=== PATIENT | female | born 1975 | race Caucasian/White ===

== ENCOUNTER 2021-12-12 07:28 | Emergency (ER) | payer OTHER ==
[2021-12-12 07:43] VITALS: BP 144/87; PULSE 80; TEMP 97; BMI 29.8
[2021-12-12] MEDS ORDERED: ACETAMINOPHEN 500 MG TABLET (FP) PO ONE (08:48)
[2021-12-12] MEDS ORDERED: ACETAMINOPHEN 500 MG TABLET (FP) ONE (08:59)
== END 2021-12-12 09:05 | disposition home or self-care (01) ==
LOC: JER 07:28
DX: M54.50 Low back pain, unspecified (principal)
CPT/HCPCS: 99283-25

== ENCOUNTER 2023-02-26 15:26 | Emergency (ER) | payer OTHER ==
[2023-02-26 15:45] VITALS: BP 152/87; PULSE 98; RESP 16; TEMP 98.5; BMI 30.5
[2023-02-26] MEDS ORDERED: diphenhydrAMINE HCL 50 MG CAPSULE PO ONE (16:00)
[2023-02-26] MEDS ORDERED: predniSONE 20 MG TABLET (UD) PO ONE (16:00)
[2023-02-26] MEDS ORDERED: FAMOTIDINE 20 MG TABLET PO ONE (16:00)
[2023-02-26] MEDS ORDERED: diphenhydrAMINE HCL 25 MG CAPSULE (FP) PO ONE (16:05)
[2023-02-26] MEDS ORDERED: FAMOTIDINE 20 MG TABLET ONE (16:06)
[2023-02-26] MEDS ORDERED: predniSONE 20 MG TABLET (UD) ONE (16:07)
[2023-02-26 17:13] LABS: BASO % 0.2 % (0-2.0); EOS % 0.3 % (0-4.5); HEMATOCRIT 35.6 % (32.4-45.2); HEMOGLOBIN 11.9 GM/dL (10.7-15.3); LYMPH % 22.6 % (8-40); MCH 27.8 pg (25.7-33.7); MCHC 33.4 g/dl (32.0-36.0); MEAN CELL VOLUME 83.3 fl (80-96); MONO % 5.8 % (3.8-10.2); NEUT % 71.1 % (42.8-82.8); PLATELET COUNT 268 10^3/uL (134-434); RBC 4.27 M/mm3 (3.60-5.2); RDW 15.2 % (11.6-15.6); WHITE BLOOD COUNT 6.5 K/mm3 (4.0-10.0)
[2023-02-26 17:33] LABS: CALCIUM 9.7 mg/dL (8.5-10.1)
[2023-02-26 17:34] LABS: ALBUMIN 3.8 g/dl (3.4-5.0); BLOOD UREA NITROGEN 17.5 mg/dL (7-18)
[2023-02-26 17:37] LABS: CREATININE 0.7 mg/dL (0.55-1.3)
[2023-02-26 17:38] LABS: BILIRUBIN,TOTAL 0.3 mg/dL (0.2-1); TOT PROT 7.6 g/dl (6.4-8.2)
== END 2023-02-26 17:57 | disposition home or self-care (01) ==
LOC: JERFT 15:26 → JER 15:26 → JERFT 17:57
DX: L29.9 Pruritus, unspecified (principal)
CPT/HCPCS: 36415; 80053; 85025; 99283-25

== ENCOUNTER 2023-05-24 06:58 | Observation (INO) | payer OTHER ==
[2023-05-24] MEDS ORDERED: KETOROLAC TROMETHAMINE 15 MG/ML VIAL IVPUSH ONE ×2 (07:35→14:08)
[2023-05-24] MEDS ORDERED: ONDANSETRON 4 MG/2 ML VIAL IVPUSH ONE (07:35)
[2023-05-24] MEDS ORDERED: SODIUM CHLORIDE 0.9% 500 ML INFUS.BAG IV ONE (07:36)
[2023-05-24] MEDS ORDERED: ONDANSETRON 4 MG/2 ML VIAL ONE (08:44)
[2023-05-24] MEDS ORDERED: KETOROLAC TROMETHAMINE 15 MG/ML VIAL ONE ×2 (08:44→14:53)
[2023-05-24 09:32] LABS: BASO % 0.3 % (0-2.0); EOS % 0.2 % (0-4.5); HEMATOCRIT 37.8 % (32.4-45.2); HEMOGLOBIN 12.3 GM/dL (10.7-15.3); LYMPH % 14.2 % (8-40); MCH 27.9 pg (25.7-33.7); MCHC 32.5 g/dl (32.0-36.0); MEAN CELL VOLUME 85.8 fl (80-96); MEAN PLT VOLUME 8.8 fl (7.5-11.1); MONO % 8.1 % (3.8-10.2); NEUT % 77.2 % (42.8-82.8); PLATELET COUNT 267 10^3/uL (134-434); RDW 14.6 % (11.6-15.6); WHITE BLOOD COUNT 5.1 K/mm3 (4.0-10.0)
[2023-05-24 09:33] LABS: EPI CELLS >36 /uL (0-25.1); HCG,QUALITATIVE URINE Negative; HYALINE CASTS 1 /uL (0-3.1); PH,URINE 6.5 (5.0-8.0); URINE APPEARANCE CLEAR; URINE BACTERIA 868 /uL (0-1359); URINE BILIRUBIN NEGATIVE (NEGATIVE); URINE COLOR YELLOW; URINE GLUCOSE (UA) NEGATIVE (NEGATIVE); URINE KETONE NEGATIVE (NEGATIVE); URINE LEUK ESTERASE NEGATIVE (NEGATIVE); URINE NITRITE NEGATIVE (NEGATIVE); URINE PROTEIN 2+ (NEGATIVE); URINE RBC 2161 /uL (0-23.9); URINE WBC 38 /uL (0-25.8)
[2023-05-24 10:20] LABS: POTASSIUM 4.1 mmol/L (3.5-5.1)
[2023-05-24 10:24] LABS: ALBUMIN 3.7 g/dl (3.4-5.0); BLOOD UREA NITROGEN 19.2 mg/dL (7-18); CALCIUM 9.6 mg/dL (8.5-10.1)
[2023-05-24 10:27] LABS: CREATININE 0.9 mg/dL (0.55-1.3)
[2023-05-24 10:29] LABS: BILIRUBIN,TOTAL 0.3 mg/dL (0.2-1); TOT PROT 7.5 g/dl (6.4-8.2)
[2023-05-24] MEDS ORDERED: KETOROLAC TROMETHAMINE 15 MG/ML VIAL IM ONE (13:51)
[2023-05-24] MEDS ORDERED: CEFTRIAXONE 1 GM in DEXTROSE 5%-WATER - 100 ML IVPB ONE (13:51)
[2023-05-24] MEDS ORDERED: ACETAMINOPHEN 325 MG TABLET (FP) PO PRN (14:06)
[2023-05-24] MEDS ORDERED: CEFTRIAXONE 1 GM/50 ML BAG ONE (14:53)
[2023-05-24 17:15] VITALS: BMI 31.8
[2023-05-25] MEDS: KETOROLAC TROMETHAMINE 15 MG/ML VIAL IVPUSH PRN ×2 (02:52→10:58)
[2023-05-25] MEDS ORDERED: CEFTRIAXONE 1 GM in DEXTROSE 5%-WATER - 50 ML IVPB SCH (10:00)
[2023-05-25 10:42] LABS: HEMATOCRIT 35.5 % (32.4-45.2); HEMOGLOBIN 11.5 GM/dL (10.7-15.3); MCHC 32.2 g/dl (32.0-36.0); MEAN CELL VOLUME 86.8 fl (80-96); MEAN PLT VOLUME 8.7 fl (7.5-11.1); PLATELET COUNT 251 10^3/uL (134-434); RDW 14.9 % (11.6-15.6); WHITE BLOOD COUNT 3.5 K/mm3 (4.0-10.0)
[2023-05-25 11:02] LABS: CALCIUM 9.3 mg/dL (8.5-10.1)
[2023-05-25 11:03] LABS: BLOOD UREA NITROGEN 20.2 mg/dL (7-18)
[2023-05-25 11:04] LABS: POTASSIUM 3.7 mmol/L (3.5-5.1)
[2023-05-25 11:06] LABS: CREATININE 0.6 mg/dL (0.55-1.3)
[2023-05-25] MEDS ORDERED: LACTATED RINGERS SOLUTION 1,000 ML/1,000 ML INFUS.BAG IV SCH (11:30)
[2023-05-25] MEDS ORDERED: TAMSULOSIN HCL 0.4 MG CAP PO ONE (11:50)
[2023-05-25] MEDS ORDERED: SODIUM CHLORIDE 1,000 ML IV SCH ×2 (14:00→16:13)
[2023-05-25] MEDS ORDERED: ONDANSETRON 4 MG/2 ML VIAL IVPUSH PRN ×3 (14:50→16:13)
[2023-05-25] MEDS ORDERED: PROMETHAZINE HCL 25 MG/1 ML VIAL IVPB PRN ×2 (14:50→16:13)
[2023-05-25] MEDS ORDERED: LACTATED RINGERS SOLUTION 1,000 ML IV SCH ×3 (15:00→16:15)
[2023-05-25] MEDS ORDERED: PROPOFOL 20 ML ONE (15:10)
[2023-05-25] MEDS ORDERED: LIDOCAINE HCL/PF 2% SDV 5ML VIAL ONE (15:10)
[2023-05-25] MEDS ORDERED: MIDAZOLAM HCL 2 MG/2 ML SINGLE DOSE VIAL ONE (15:10)
[2023-05-25] MEDS ORDERED: ceFAZolin SODIUM 1 GM VIAL ONE (15:24)
[2023-05-25] MEDS ORDERED: DEXAMETHASONE SOD PHOSPHATE 4 MG/1 ML VIAL ONE (15:24)
[2023-05-25] MEDS ORDERED: ceFAZolin SODIUM 1 GM VIAL IVPB ONE (15:25)
[2023-05-25] MEDS ORDERED: ONDANSETRON 4 MG/2 ML VIAL ONE (15:49)
[2023-05-25] MEDS ORDERED: KETOROLAC TROMETHAMINE 30 MG/1 ML VIAL ONE (15:49)
[2023-05-25] MEDS ORDERED: ACETAMINOPHEN 1000 MG/100 ML BAG IVPB ONE ×2 (16:05→16:30)
[2023-05-25] MEDS ORDERED: KETOROLAC TROMETHAMINE 15 MG/ML VIAL IVPUSH PRN (16:13)
[2023-05-25] MEDS ORDERED: ACETAMINOPHEN INJECTION 100 ML IVPB ONE (16:24)
[2023-05-25] MEDS ORDERED: KETOROLAC TROMETHAMINE 30 MG/1 ML VIAL IM PRN ×2 (17:00)
[2023-05-25] MEDS: ACETAMINOPHEN 325 MG TABLET (FP) PO SCH (18:00)
[2023-05-25] MEDS ORDERED: ACETAMINOPHEN 325 MG TABLET (FP) PO SCH (18:00)
[2023-05-25 18:08] VITALS: RESP 18
[2023-05-26] MEDS: ACETAMINOPHEN 325 MG TABLET (FP) PO SCH ×3 (00:21→13:01)
[2023-05-26 10:00] LABS: BASO % 0.2 % (0-2.0); HEMATOCRIT 35.8 % (32.4-45.2); HEMOGLOBIN 11.7 GM/dL (10.7-15.3); LYMPH % 8.2 % (8-40); MCHC 32.7 g/dl (32.0-36.0); MEAN CELL VOLUME 85.8 fl (80-96); MEAN PLT VOLUME 8.8 fl (7.5-11.1); MONO % 2.6 % (3.8-10.2); PLATELET COUNT 285 10^3/uL (134-434); RBC 4.17 M/mm3 (3.60-5.2); RDW 14.4 % (11.6-15.6); WHITE BLOOD COUNT 6.7 K/mm3 (4.0-10.0)
[2023-05-26 10:09] LABS: EPI CELLS 29 /uL (0-25.1); HYALINE CASTS 1 /uL (0-3.1); URINE APPEARANCE CLOUDY; URINE BACTERIA 1 /uL (0-1359); URINE BILIRUBIN NEGATIVE (NEGATIVE); URINE COLOR RED; URINE GLUCOSE (UA) NEGATIVE (NEGATIVE); URINE KETONE NEGATIVE (NEGATIVE); URINE LEUK ESTERASE 2+ (NEGATIVE); URINE NITRITE NEGATIVE (NEGATIVE); URINE PROTEIN 2+ (NEGATIVE); URINE UROBILINOGEN 0.2 mg/dL (0.2-1.0); URINE WBC 146 /uL (0-25.8)
[2023-05-26 10:34] LABS: URINE RBC 17821.9 /uL (0-23.9)
[2023-05-26 10:48] LABS: POTASSIUM 4.2 mmol/L (3.5-5.1)
[2023-05-26 10:51] LABS: ALBUMIN 3.5 g/dl (3.4-5.0); BLOOD UREA NITROGEN 17.2 mg/dL (7-18)
[2023-05-26 10:54] LABS: CREATININE 0.9 mg/dL (0.55-1.3)
[2023-05-26 10:56] LABS: BILIRUBIN,TOTAL 0.1 mg/dL (0.2-1); TOT PROT 7.1 g/dl (6.4-8.2)
[2023-05-26 11:04] LABS: CALCIUM 10.4 mg/dL (8.5-10.1)
[2023-05-26 15:10] VITALS: BP 135/80; PULSE 83; TEMP 98.2
== END 2023-05-26 16:23 | disposition home or self-care (01) ==
LOC: JER 06:58 → JERBED 14:08 → J6S 15:58
PROVIDERS: ADMIT Internal Medicine; ATTEND Internal Medicine
PROC: 0TC14ZZ Extirpation of Matter from Left Kidney, Percutaneous Endoscopic Approach (ICD-10-PCS; principal; 2023-05-24)
PROC: 3E033NZ Introduction of Analgesics, Hypnotics, Sedatives into Peripheral Vein, Percutaneous Approach (ICD-10-PCS; 2023-05-24)
PROC: 3E03329 Introduction of Other Anti-infective into Peripheral Vein, Percutaneous Approach (ICD-10-PCS; 2023-05-24)
DX: N20.0 Calculus of kidney (principal); Q87.81 Alport syndrome; R10.32 Left lower quadrant pain; Z29.8 Encounter for other specified prophylactic measures
CPT/HCPCS: 36415; 74176-TC; 76000-TC-FY; 80048; 80053; 81003; 83605; 83690; 84703; 85025; 85027; 87086; 93005; 93010; 94760; 96365; 96367; 96375; 99285-25; C1769; C2617; G0378

== ENCOUNTER 2024-01-22 11:58 | Emergency (ER) | payer OTHER ==
[2024-01-22 12:13] VITALS: BP 133/100; PULSE 106; RESP 20; TEMP 99.1; BMI 29.8
[2024-01-22] MEDS ORDERED: FAMOTIDINE 20 MG/50 ML IVPB 20 MG/50 ML MG IVPB ONE (13:23)
[2024-01-22] MEDS ORDERED: ONDANSETRON 4 MG/2 ML VIAL ONE (13:23)
[2024-01-22] MEDS: ONDANSETRON 4 MG/2 ML VIAL IVPUSH ONE (13:40)
[2024-01-22] MEDS: LACTATED RINGERS SOLUTION 1000 ML INFUS.BAG IV ONE (13:40)
[2024-01-22] MEDS: FAMOTIDINE 20 MG/50 ML IVPB 20 MG/50 ML MG IVPB ONE (13:40)
[2024-01-22 13:53] LABS: BASO % 0.2 % (0-2.0); HEMATOCRIT 37.8 % (32.4-45.2); HEMOGLOBIN 12.6 GM/dL (10.7-15.3); LYMPH % 8.9 % (8-40); MCH 28.7 pg (25.7-33.7); MCHC 33.5 g/dl (32.0-36.0); MEAN CELL VOLUME 85.5 fl (80-96); MEAN PLT VOLUME 8.4 fl (7.5-11.1); MONO % 4.8 % (3.8-10.2); NEUT % 86.1 % (42.8-82.8); PLATELET COUNT 241 10^3/uL (134-434); RBC 4.42 M/mm3 (3.60-5.2); RDW 14.9 % (11.6-15.6)
[2024-01-22 14:28] LABS: POTASSIUM 3.8 mmol/L (3.5-5.1)
[2024-01-22 14:31] LABS: CALCIUM 9.7 mg/dL (8.5-10.1)
[2024-01-22 14:32] LABS: ALBUMIN 3.8 g/dl (3.4-5.0); BLOOD UREA NITROGEN 18.8 mg/dL (7-18); MAGNESIUM 2.2 mg/dL (1.8-2.4)
[2024-01-22 14:36] LABS: CREATININE 0.7 mg/dL (0.55-1.3); TOT PROT 7.8 g/dl (6.4-8.2)
[2024-01-22 14:38] LABS: BILIRUBIN,TOTAL 0.3 mg/dL (0.2-1)
[2024-01-22 15:01] LABS: EPI CELLS 20 /uL (0-25.1); HYALINE CASTS 1 /uL (0-3.1); PH,URINE 6.5 (5.0-8.0); URINE APPEARANCE CLEAR; URINE BACTERIA 413 /uL (0-1359); URINE BILIRUBIN NEGATIVE (NEGATIVE); URINE COLOR YELLOW; URINE GLUCOSE (UA) NEGATIVE (NEGATIVE); URINE KETONE 3+ (NEGATIVE); URINE LEUK ESTERASE NEGATIVE (NEGATIVE); URINE NITRITE NEGATIVE (NEGATIVE); URINE PROTEIN 1+ (NEGATIVE); URINE RBC 795 /uL (0-23.9); URINE WBC 16 /uL (0-25.8)
[2024-01-22 16:30] LABS: EPI CELLS 10 /uL (0-25.1); HYALINE CASTS 0 /uL (0-3.1); PH,URINE 5.5 (5.0-8.0); URINE APPEARANCE CLEAR; URINE BACTERIA 105 /uL (0-1359); URINE BILIRUBIN NEGATIVE (NEGATIVE); URINE COLOR YELLOW; URINE GLUCOSE (UA) NEGATIVE (NEGATIVE); URINE KETONE 3+ (NEGATIVE); URINE LEUK ESTERASE NEGATIVE (NEGATIVE); URINE NITRITE NEGATIVE (NEGATIVE); URINE PROTEIN TRACE (NEGATIVE); URINE RBC 224 /uL (0-23.9); URINE WBC 8 /uL (0-25.8)
== END 2024-01-22 18:19 | disposition home or self-care (01) ==
LOC: JER 11:58
PROC: 3E033GC Introduction of Other Therapeutic Substance into Peripheral Vein, Percutaneous Approach (ICD-10-PCS; principal; 2024-01-22)
PROC: 3E033GC Introduction of Other Therapeutic Substance into Peripheral Vein, Percutaneous Approach (ICD-10-PCS; 2024-01-22)
DX: R11.2 Nausea with vomiting, unspecified (principal); R53.1 Weakness; R53.83 Other fatigue; R68.83 Chills (without fever)
CPT/HCPCS: 36415; 80053; 81003; 83735; 84703; 85025; 87086; 93005; 93010; 99284-25